=== PATIENT | female | born 1975 | race African-American/Black ===

== ENCOUNTER 2021-03-22 04:33 | Emergency (ER) | payer OTHER ==
[2021-03-22 05:14] VITALS: BP 144/94; PULSE 72; TEMP 98.6; BMI 28.8
[2021-03-22 07:59] LABS: PH,URINE 5.5 (5.0-8.0); URINE APPEARANCE CLEAR; URINE BILIRUBIN NEGATIVE (NEGATIVE); URINE COLOR YELLOW; URINE GLUCOSE (UA) NEGATIVE (NEGATIVE); URINE KETONE TRACE (NEGATIVE); URINE LEUK ESTERASE NEGATIVE (NEGATIVE); URINE NITRITE NEGATIVE (NEGATIVE); URINE PROTEIN NEGATIVE (NEGATIVE)
== END 2021-03-22 08:15 | disposition home or self-care (01) ==
LOC: JER 04:33
DX: R10.9 Unspecified abdominal pain (principal); M54.5 Low back pain
CPT/HCPCS: 81003; 84703; 87077; 87086; 99283-25